=== PATIENT | male | born 1935 | race Caucasian/White ===

== ENCOUNTER 2016-08-21 23:56 | Emergency (ER) | payer MEDICARE ==
[~2016-08-21 23:56] MED LIST: ACETIC ACID IR; ASA CHILDREN'S81 MG PO; ASCORBIC ACID500 MG PO; CATAPRES-T0.3 MG/24 TD; CELEXA DPS20 MG PO; COLACE-DPS100 MG PO; DUONEB DPS3 ML IH; DURAGESIC DPS75 MCG TD; GLUCOPHAGE-DPS500 MG GT; HYDROCORTISONE IR; LOPRESSOR DPS50 MG PO; MINOCIN DPS100 MG PO; NIZORAL DPS30 GM TP; OMEPRAZOLE SUSP PO; SENOKOT DPS30 ML PO; [UNRECOGNIZED DRUG - OTHER] GT; [UNRECOGNIZED DRUG - OTHER] IR
--- NOTE | 2016-08-22 19:52 | ER ---
ADMIT: 08/21/2016 RM/LOC: ER [facility] MR#: [id number] [address] [address] [place] [address] Emergency Room Report SEX: M AGE: 80 : 1935 DATE: 08/21/2016 Please refer to the main dictation for more information. The patient was signed out to me. HISTORY OF PRESENT ILLNESS: The patient is a 80-year-old male with multiple comorbidities of hypertension and coronary artery disease, came to the ER from senior care because of the high blood pressure. Allegedly, the patient was compliant with his medications. The patient denies any headaches, chest pain, shortness of breath, visual changes, nausea, vomiting. PHYSICAL EXAMINATION: VITAL SIGNS: In the ER, the patient had systolic blood pressure of 200s. The patient had no obvious signs or symptoms of the end-organ damage. The patient received clonidine followed by 2 doses of 10 mg labetalol and blood pressure decreased systolic to 170s. The patient is stable, in no pain or distress and was stable to be discharged to nursing care facility to be followed up by the primary doctor as needed. Bulmaro Robledo MD/ miller JOB #: [id number] CC: Bulmaro Robledo MD, Attending Physician
== END 2016-08-22 02:35 | disposition home or self-care (01) ==
LOC: ER 23:56
DX: I10 Essential (primary) hypertension (principal); E11.9 Type 2 diabetes mellitus without complications

== ENCOUNTER 2016-08-23 10:24 | Emergency (ER) | payer MEDICARE ==
--- NOTE | 2016-08-29 14:42 | ER ---
ADMIT: 08/23/2016 RM/LOC: ER [facility] MR#: [id number] [address] [address] [place] [address] Emergency Room Report SEX: M AGE: 80 : 1935 DATE: 08/23/2016 ADDENDUM: CHIEF COMPLAINT: Constipation. HISTORY OF PRESENT ILLNESS: This is a 80-year-old male, who was sent over from the [facility] for abdominal pain and distention. COURSE IN EMERGENCY ROOM: CBC, CMP, lipase, and CT of his abdomen was done. I did not do a UA due to him having an indwelling Oswald. His white count was 12.0. CT of abdomen showed no obstruction but did have some constipation. CMP is normal except for an alkaline phosphatase of 169, glucose 160, and lipase of 58. He is being discharged back to the [facility]. Having them push fluids, do stool softeners or magnesium citrate as needed. Follow up with their primary care physician at the [facility] as needed. CLINICAL IMPRESSION: Constipation. MONIQUE Radford / Tee Medel MD / miller JOB #: [id number] CC: Tee Medel MD, Attending Physician UNKNOWN, Family Physician
--- NOTE | 2016-09-02 01:09 | ER ---
ADMIT: 08/23/2016 RM/LOC: [facility] MR#: [id number] [id number] [place], [place] [address] [place] [address] Emergency Room Report SEX: M AGE: 80 : 1935 DATE: This is a patient that I was seeing in conjunction with MONIQUE Woo. HISTORY OF PRESENT ILLNESS: This is a 80-year-old male, who was examined by Trixie Piper, abdominal pain and increased blood pressure, which was present. He was sent to us from the [facility]. REVIEW OF SYMPTOMS: Negative. PAST MEDICAL HISTORY: Laminectomy, dysphagia, COPD, diabetic, CKD, and osteoarthritis. He has had a PEG tube, hip surgery, and appendectomy. SOCIAL HISTORY: Lives at the [facility]. Alcohol history of. MEDICATIONS: See T-sheet. PHYSICAL EXAMINATION: See nursing assessment. GENERAL: In no acute distress, alert. HEENT: Normal on inspection. RESPIRATIONS: No distress. CARDIOVASCULAR: Regular in rate and rhythm. SKIN: Good color and turgor. Warm and dry. NEUROLOGIC: Oriented x4. Mood and affect are appropriate. DIAGNOSTIC DATA: CT done; G-tube in place, stool, no obstruction, mild fatty infiltration of liver. LABORATORY DATA: WBCs of 12, creatinine of 9.3 with a glucose of 160, lipase 58, and alkaline phosphatase 169. Essentially, the CT shows that he has a lot of stool. Reviewing it with Dr. Medel, he concurred that there is stool in the abdomen that is causing most of the symptoms he has had. CLINICAL IMPRESSION: 1. Constipation. 2. Abdominal pain. He is to follow up with the [facility]. See T-sheet for further documentation. He needs stool softeners or mag citrate. He was afebrile while he was in the emergency room. The physical examination of the patient was performed by Trixie Piper. I was able to follow up with the labs and interpretation of such and discharged the patient. MONIQUE Gibbs / Tee Medel MD / miller JOB #: [id number] CC: ADMIT: 08/23/2016 RM/LOC: [facility] MR#: [id number] [facility] [address] [address] [place] [address] Emergency Room Report SEX: M AGE: 80 : 1935 Tee Medel MD, Attending Physician
== END 2016-08-23 14:24 | disposition home or self-care (01) ==
LOC: ER 10:24
DX: K59.00 Constipation, unspecified (principal); J44.9 Chronic obstructive pulmonary disease, unspecified; E11.22 Type 2 diabetes mellitus with diabetic chronic kidney disease; N18.9 Chronic kidney disease, unspecified; M19.90 Unspecified osteoarthritis, unspecified site; Z90.49 Acquired absence of other specified parts of digestive tract